=== PATIENT | male | born 1995 | race Caucasian/White ===

== ENCOUNTER 2018-06-20 19:45 | Emergency (ER) | payer OTHER, SELFPAY ==
[2018-06-20 19:46] VITALS: BP 127/75; PULSE 90; RESP 18; TEMP 36.4; O2SAT 100; BMI 27.9
--- NOTE | 2018-06-20 19:57 | CT_ITS ---
STUDY: CT FACIAL BONES WITHOUT CONTRAST REASON FOR EXAM: Male, 23 years old. Mandibular injury. RADIATION DOSAGE (If Supplied By Facility): CTDIvol = ( 29.38 ) mGy, DLP = ( 584.19 ) mGycm TECHNIQUE: The patient was scanned in a multi detector CT scanner. Sagittal and coronal images were reconstructed. Individualized dose optimization techniques were used for this CT. COMPARISON: None. FINDINGS: Normal soft tissue structures. Normal orbital saravia and orbital contents. Normal nasal bones and anterior nasal spine. Normal facial bones. Normal mandible. There is no demonstrated fracture. Normal visualized paranasal sinuses. CT/Sinus/Facial Bone IMPRESSION: Normal unenhanced CT of the facial bones. Electronically Signed: Maxi Grajeda MD at 20:39 EDT , Service support ,
--- NOTE | 2018-06-20 20:43 | ED.VISSUMM ---
- ER Visit Summary Date of Service: 06/20/18 Chief Complaint: Injury to left mandible [] History of Present Illness: The patient is a 23 M [presents the emergency department with complaint of left mandible pain after sustaining an injury earlier today approximately 1 PM. Patient states that he was playing softball and running the second base when he ran into another individual. Patient complaining of pain to his left jaw and difficulty eating due to pain and feeling like things are not fitting together properly. Patient denies loss of consciousness. He denies any other injuries.] Physical Examination: [HEENT-PERRLA, EOMI. Cranial nerves II through XII grossly intact. TMs clear. Mucous membranes moist. No adenopathy. Patient does have tenderness over the left mandible near the angle with no obvious deformity noted. I do not appreciate any obvious malocclusion. There are no lacerations in the patient's mouth. Cardiovascular-regular rate and rhythm without murmur or ectopy Lungs-clear to auscultation, chest wall stable without crepitus or subcu emphysema Abdomen-normoactive bowel sounds, soft, nontender, no rebound or rigidity, no peritoneal signs. Extremities-intact ?4, normal range of motion, normal pulses, atraumatic] Test Results: [CT facial bones obtained and was normal.] Emergency Department Course and Treatment: [] Treatment Plan: [Patient advised use ice to the area and will be given a prescription for 10 [place] for pain] Disposition: [Discharged home in stable condition] Impression: [Contusion mandible] This note was generated with [employer] dictation software. It may contain incorrect words, spelling, and punctuation that were not noted in review of the chart prior to signing ED Disposition - Plan for ED Patient: Chief Complaint: Other, Pain/Inj Referrals: Care Physician,No Primary [Primary Care Provider] -
--- NOTE | 2018-06-20 20:46 | DCINST.ED_ITS ---
ED Disposition - Plan for ED Patient: Chief Complaint: Other, Pain/Inj Instructions: ED Contusion Face Prescriptions: Hydrocodone Bitart/Apap 5-325 [[place] 5MG-325MG] 1 tab PO Q4H PRN PRN 2 Days #10 tab PRN Reason: Pain Referrals: Care Physician,No Primary [Primary Care Provider] - Cesar Feldman MD [STAFF PHYSICIAN] - 5-7 Days
[2018-06-20 20:52] VITALS: RESP 18
== END 2018-06-20 20:53 | disposition home or self-care (01) ==
LOC: ED 20:40
PROVIDERS: Emergency Provider Emergency Medicine
DX: S00.83XA Contusion of other part of head, initial encounter (principal); W51.XXXA Accidental striking against or bumped into by another person, initial encounter; Y93.64 Activity, baseball; Y92.328 Other athletic field as the place of occurrence of the external cause; Y99.8 Other external cause status
CPT/HCPCS: 70486; 99282

== ENCOUNTER 2018-09-12 20:48 | Emergency (ER) | payer OTHER, SELFPAY ==
[2018-09-12 20:49] VITALS: BP 129/79; PULSE 79; RESP 16; TEMP 36.8; O2SAT 99; BMI 28.3
--- NOTE | 2018-09-12 22:53 | ED.VISSUMM ---
- ER Visit Summary Date of Service: 09/12/18 Chief Complaint: [Redness and swelling to right hand] History of Present Illness: The patient is a 23 M [presents the emergency department complaint of redness and swelling to the dorsum of his right hand. 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 Patient's noticed increased redness and swelling. He denies any fever. Denies any drainage from the wound. He denies punching anybody or this being a bite wound. He does not believe there is any possibility of foreign body as this was a burn.] Physical Examination: [Right hand-patient does have a small circular burn to the dorsum of the second MCP joint with surrounding erythema. There is erythema and edema of the dorsum of the hand. With very faint lymphangitic streaking to the wrist. Patient has normal range of motion flexion extension of all digits. He is neurovascular intact.] Test Results: [None indicated] Emergency Department Course and Treatment: [Patient was given Unasyn 3 g IV and given an Adacel tetanus booster.] Treatment Plan: [Will be treated with Keflex and Bactrim and [place] for pain.] Disposition: [Discharged home in stable condition. Patient referred to orthopedics on-call Dr. Chacorta Horner for follow-up within the next 2-3 days.] Impression: [Burn right hand with cellulitis and lymphangitis] This note was generated with [employer] dictation software. It may contain incorrect words, spelling, and punctuation that were not noted in review of the chart prior to signing ED Disposition - Plan for ED Patient: Chief Complaint: Wound Check Referrals: Care Physician,No Primary [Primary Care Provider] -
--- NOTE | 2018-09-12 22:56 | ED.DCSUM_ITS ---
- ER Visit Summary Date of Service: 09/12/18 Chief Complaint: [Redness and swelling to right hand] History of Present Illness: The patient is a 23 M [presents the emergency department complaint of redness and swelling to the dorsum of his right hand. 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 Patient's noticed increased redness and swelling. He denies any fever. Denies any drainage from the wound. He denies punching anybody or this being a bite wound. He does not believe there is any possibility of foreign body as this was a burn.] Physical Examination: [Right hand-patient does have a small circular burn to the dorsum of the second MCP joint with surrounding erythema. There is erythema and edema of the dorsum of the hand. With very faint lymphangitic streaking to the wrist. Patient has normal range of motion flexion extension of all digits. He is neurovascular intact.] Test Results: [None indicated] Emergency Department Course and Treatment: [Patient was given Unasyn 3 g IV and given an Adacel tetanus booster.] Treatment Plan: [Will be treated with Keflex and Bactrim and [place] for pain.] Disposition: [Discharged home in stable condition. Patient referred to orthopedics on-call Dr. Chacorta Horner for follow-up within the next 2-3 days.] Impression: [Burn right hand with cellulitis and lymphangitis] This note was generated with [employer] for [employer] dictation software. It may contain incorrect words, spelling, and punctuation that were not noted in review of the chart prior to signing ED Disposition - Plan for ED Patient: Chief Complaint: Wound Check Referrals: Care Physician,No Primary [Primary Care Provider] -
--- NOTE | 2018-09-12 22:58 | DCINST.ED_ITS ---
ED Disposition - Plan for ED Patient: Chief Complaint: Wound Check Instructions: ED Burn Wound Check FU Infec Prescriptions: Hydrocodone Bitart/Apap 5-325 [[place] 5MG-325MG] 1 tab PO Q4H PRN PRN 2 Days #10 tab PRN Reason: Pain Cephalexin [Keflex] 500 mg PO Q6 #40 cap Smz/Tmp Ds [Bactrim Ds] 1 tab PO BID #20 tab Referrals: Care Physician,No Primary [Primary Care Provider] - Chacorta Horner MD [STAFF PHYSICIAN] - 2 Days for wound check
[2018-09-12] MEDS: Diphth,Pertuss(Acell),Tet Vac 0.5 ML Vial IM (23:08)
== END 2018-09-12 23:40 | disposition home or self-care (01) ==
PROVIDERS: Emergency Provider Emergency Medicine
DX: T23.061A Burn of unspecified degree of back of right hand, initial encounter (principal); T79.8XXA Other early complications of trauma, initial encounter; L03.113 Cellulitis of right upper limb; I89.1 Lymphangitis; X08.8XXA Exposure to other specified smoke, fire and flames, initial encounter; Y93.89 Activity, other specified; Y92.89 Other specified places as the place of occurrence of the external cause; Y99.8 Other external cause status
CPT/HCPCS: 90715; 96365; 99282; A4216; J0295

== ENCOUNTER 2025-11-28 13:13 | Emergency (ER) | payer BC, SELFPAY ==
[2025-11-28 13:14] VITALS: BP 150/93; PULSE 96; RESP 16; TEMP 36.8; O2SAT 98; BMI 28.7
--- NOTE | 2025-11-28 13:29 | RAD_ITS ---
PROCEDURE: CHEST 1 VIEW (PORTABLE) 11/28/2025 REASON FOR EXAM: CHEST PAIN TECHNIQUE: Frontal view of the chest. COMPARISON: None. RAD/Chest 1 View (Portable) IMPRESSION: No pleural effusion or pneumothorax is seen. Lungs appear clear of acute disease. The cardiomediastinal silhouette is within the normal range. No acute osseous changes seen. No evidence of acute cardiopulmonary disease. Reading Location: [place] [id number]
--- NOTE | 2025-11-28 13:29 | EKG12_ITS ---
Test Reason : PALP Blood Pressure : */* mmHG Vent. Rate : 93 BPM Atrial Rate : 93 BPM P-R Int : 136 ms QRS Dur : 86 ms QT Int : 338 ms P-R-T Axes : 61 67 21 degrees QTcB Int : 420 ms Normal sinus rhythm Normal ECG Confirmed by Salomon Rabago ([id number]), story editor REBEL GAMING ([id number]) on 12/04/2025 9:00:42 AM Referred By: TB/BB Confirmed By: Salomon Rabago
--- NOTE | 2025-11-28 13:30 | ED.VIS.CHEST ---
HPI History of Present Illness Chief Complaint: Palpitations Informant: patient Narrative Narrative: Patient is a 30-year-old male with no significant PMHx presenting with palpitations and associated symptoms. - Reports intermittent palpitations for several months, described as fluttering and skipping a beat, occurring sporadically, sometimes weeks apart. 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 [place] near-syncopal, a little dyspneic, and was noted to look a little pale. All now resolved. - Noted episodes at night with tachycardia, affecting sleep. - Previously evaluated with an EKG, results were normal. - Denies anxiety or stress during episodes. - Concerns about a potential dental abscess due to an unfilled root canal, but denies pain. [facility] Medical History (Updated 11/28/25 @ 16:[address] Romero Khan MD) Shoulder dislocation Medical History no medical history no medical history Home Medications ?Medication ?Instructions ?Recorded ?Last Taken ?Type cephalexin 500 mg capsule 500 mg PO Q6 #40 caps 09/12/18 Unknown Rx sulfamethoxazole 800 1 tab PO BID #20 tabs 09/12/18 Unknown Rx mg-trimethoprim 160 mg tablet Allergy/AdvReac Type Severity Reaction Status Date / Time No Known Allergies Allergy Verified 11/28/25 13:16 Social History Smoking Status: Never smoker ROS ROS ED Constitutional Constitutional ED: Denies chills or fever(s) Eyes Eyes: Denies change in vision or diplopia ENT ENT ED: Denies rhinorrhea or sore throat Cardiovascular Cardiovascular: Reports as per HPI, chest pain, lightheadedness and palpitations; Denies leg edema or syncope Respiratory/Chest Respiratory/Chest: Reports dyspnea; Denies cough Gastrointestinal Gastrointestinal: Denies abdominal pain, diarrhea, nausea or vomiting Genitourinary Genitourinary ED: Denies dysuria or hematuria Musculoskeletal Musculoskeletal: Denies back pain or neck pain Integumentary Denies abscess or rash Neurologic Neurologic: Denies headache(s), paresthesias or weakness Psychiatric Psychiatric: Denies anxiety or suicidal thoughts EXAM Physical Exam Const Vital Signs: 11/28/25 13:14 11/28/25 13:36 11/28/25 14:15 Temperature 98.3 F Temperature Source Oral Pulse Rate 96 105 H Respiratory Rate 16 18 Blood Pressure 150/93 H 140/88 H Blood Pressure Mean 112 105 Pulse Ox 98 100 Oxygen Delivery Method Room Air Room Air Room Air 11/28/25 15:00 11/28/25 15:57 Temperature Temperature Source Pulse Rate 101 H 84 Respiratory Rate 18 19 H Blood Pressure 127/91 H 130/89 H Blood Pressure Mean 103 102 Pulse Ox 100 98 Oxygen Delivery Method Room Air Positive well nourished and well developed General Appearance ED: well developed and NAD HEENT Reports moist mucous membranes normocephalic and atraumatic Eyes PERRL and EOMs intact bilaterally Neck full ROM and supple Resp normal respiratory effort and clear to auscultation bilaterally Cardio regular rate, regular rhythm and no murmurs GI non-tender and non-distended Auscultation: normoactive bowel sounds Palpation: soft Back/Spine no CVA tenderness General Back: other FROM Extremity normal to inspection General Extremety ED: Negative for edema, pulses abnormal or tenderness General Extremity: Negative for edema or pulses abnormal Neuro oriented x3, CN's II-XII intact bilaterally and no sensory deficits noted Sensorium / Orientation: awake and alert Motor Exam: strength 5/5 throughout Skin no rashes or lesions noted and no wounds Heart Score History: Moderately Suspicious ECG: Normal Age: </= 45 years Risk Factors: No Risk Factors Troponin: </= Normal Limit Score: 1 MDM MDM MDM Narrative Medical decision making narrative: Assessment: The patient is a 30-year-old male presenting for episodic palpitations with associated transient chest burning and a brief hot-flash sensation today, accompanied by near-syncope. He experienced one short episode while on telemetry in the ED; review of that strip showed no dysrhythmia or ectopy, only sinus arrhythmia. Serial troponins are normal and EKG is described as ?looks great,? making acute coronary syndrome unlikely. PERC score is 0, so pulmonary embolism does not require further ED work-up. Current impression is benign atrial or ventricular ectopy versus other non-dangerous electrical disturbance; no evidence of ACS or PE. Plan: - Reassured patient regarding benign findings and low risk for ACS or PE - Discharged home in stable condition - Advised outpatient cardiology follow-up for possible Holter or event monitor given recurrent symptoms - Return precautions reviewed; patient verbalizes understanding Diagnostics: - EKG performed and independently interpreted by me, Romero Erin: Sinus arrhythmia otherwise normal - Telemetry review during ED stay: no dysrhythmias or ectopy, sinus arrhythmia only - Labs: comprehensive metabolic panel normal; two sequential troponins normal Reevaluations: - Patient re-evaluated after brief in-ED episode; vitals stable, BP 130/89, symptoms resolved, no dysrhythmia captured (telemetry reviewed; no ectopy, just sinus arrhythmia). Portions of this note were generated using voice recognition software ([employer]). I have reviewed the contents and every effort has been made to ensure accuracy; however, inadvertent errors in grammar, spelling, punctuation, or word choice may occur, that were not noted before signing the document and should not alter the intended clinical meaning. Lab Data Attestation: I reviewed the patient's lab results. Labs: Laboratory Results - last 24 hr 11/28/25 11/28/25 13:41 15:21 WBC 12.2 H RBC 5.08 Hgb 15.4 Hct 44.6 MCV 87.8 MCH 30.3 MCHC 34.5 RDW Std Deviation 38.5 RDW Coeff of Richard 11.9 Plt Count 249 MPV 9.7 Immature Gran % (Auto) 0.400 Neut % (Auto) 78.6 H Lymph % (Auto) 14.4 L [place] % (Auto) 5.6 Eos % (Auto) 0.5 Baso % (Auto) 0.5 Absolute Neuts (auto) 9.6 H Absolute Lymphs (auto) 1.76 Nucleated RBC % 0 Sodium 136 Potassium 4.2 Chloride 100 Carbon Dioxide 25.2 Anion Gap 11 BUN 16 Creatinine 0.94 Estim Creat Clear Calc 130.17 Est GFR (MDRD) Non-Af 112 BUN/Creatinine Ratio 17.0 Glucose 102 H Calcium 9.6 Troponin T High Sens < 6 Troponin T Hi Sens 2 Hr < 6 Radiography Diagnostic Testing: Clinical Impression(s) from Imaging Studies Chest X-Ray 11/28/25 13:29 IMPRESSION: No pleural effusion or pneumothorax is seen. Lungs appear clear of acute disease. The cardiomediastinal silhouette is within the normal range. No acute osseous changes seen. No evidence of acute cardiopulmonary disease. Reading Location: [place] [id number] Rhythm Strip Rhythm Strip: Sinus Rhythm Rate: 93 Ectopy: None EKG Initial EKG: Attestation: I personally reviewed and interpreted this EKG as follows: Interpretation: No Acute Injury Pattern and Sinus Arrythmia Comments: Nml axis & intervals; nml EKG Prior EKG tracings: not available for review Prior: No Prior Discharge Plan Triage Chief Complaint: Palpitations ED Provider: Romero Khan Dx/Rx/DC Orders Clinical Impression: Palpitations, Chest pain, Near syncope Instructions: ED Heart Palpitations Prescriptions: No Action sulfamethoxazole-trimethoprim 1 TABLET tablet 1 tab PO BID Qty: 20 0RF cephalexin 500 MG capsule 500 mg PO Q6 Qty: 40 0RF Primary Care Provider: Care Physician,No Primary Referrals: Salomon Rabago DO [Med Staff - Active Staff, Cardiology] - As soon as possible Referral Note: call for appt to be seen by first avail provider Activity Restrictions/Additional Instructions: Call and ask to be set up for an appointment to get a Holter or event monitor. Print Language: Azeri Disposition Disposition: Home, Self Care
[2025-11-28 13:48] LABS: Hematocrit 44.6 % (40-54); Hemoglobin 15.4 g/dL (13.0-16.5); Immature Granulocytes Count 0.050 X10^3/uL (0.0-0.0); Mean Corp Hgb Conc 34.5 g/dL (32-36); Mean Corpuscular Volume 87.8 fL (80-94); Mean Platelet Vol. 9.7 fl (6.2-12.0); NRBC Flagged by Analyzer 0 % (0-5); Platelet Count 249 K/mm3 (150-450); RBC Distribution Width CV 11.9 % (11.6-14.6); RBC Distribution Width SD 38.5 fl (35.1-43.9); Red Blood Count 5.08 M/mm3 (4.6-6.2); White Blood Count 12.2 K/mm3 (4.4-11.0)
[2025-11-28 14:15] VITALS: BP 140/88; PULSE 105; RESP 18; O2SAT 100
[2025-11-28 14:18] LABS: Anion Gap 11 (7-18); BUN 16 mg/dL (4-19); BUN/Creat Ratio 17.0 RATIO (10-20); Calcium,Total 9.6 mg/dL (7.6-11.0); Carbon Dioxide 25.2 mmol/L (20.0-29.0); Chloride 100 mmol/L (96-106); Estimated Creatinine Clearance 130.17 ml/min (50-250); Glucose 102 mg/dL (70-99); Potassium 4.2 mmol/L (3.5-5.1); Troponin T High Sensitivity < 6 ng/L (<=22)
[2025-11-28 15:00] VITALS: BP 127/91; PULSE 101; RESP 18; O2SAT 100
[2025-11-28 15:54] LABS: Troponin T High Sens 2 HR < 6 ng/L (<=22)
[2025-11-28 15:57] VITALS: BP 130/89; PULSE 84; RESP 19; O2SAT 98
[2025-11-28 16:00] VITALS: BP 120/87; PULSE 70; RESP 16; O2SAT 99
[2025-11-28 16:15] VITALS: BP 134/97; PULSE 85; RESP 16; TEMP 37; O2SAT 99
== END 2025-11-28 16:21 | disposition home or self-care (01) ==
PROVIDERS: Emergency Provider Emergency Medicine; Visit Provider Emergency Medicine
DX: R00.2 Palpitations (principal); R06.00 Dyspnea, unspecified; R42 Dizziness and giddiness; R07.9 Chest pain, unspecified
CPT/HCPCS: 71045; 80048; 84484; 85025; 93005; 99283; A4216